=== PATIENT | female | born 1975 | race Caucasian/White ===

== ENCOUNTER → 2024-02-12 16:09 | Outpatient (CLI) | payer OTHER, SELFPAY ==
--- NOTE | 2024-02-12 16:13 | DI.MRI.S_ITS ---
PROCEDURE: MR THORACIC SPINE WO CON INDICATIONS: SPONDYLOISTHESIS LUMB REG/SPONDYLOSIS TSPINE TECHNIQUE: Noncontrast sagittal T1 spine echo and T2 fast spin echo, sagittal STIR, and T2 fast spin echo through the thoracic spine. COMPARISON: [facility], MR, MR LUMBAR SPINE WO CON, 02/12/2024, 16:26. [facility], CR, XR THORACIC SPINE 2 VIEWS, 01/05/2024, 14:51. [facility] Outside [facility], CR, XR LUMBAR SPINE 2 OR 3 VIEWS, 01/05/2024, 14:37. FINDINGS: Image quality: Excellent. Alignment and Curvature: There is normal bony alignment. Bone Marrow: Marrow is of normal overall signal. No acute vertebral body compression fractures. Spinal Cord: Visualized spinal cord is normal in size and signal. Paraspinous Soft Tissues: No paravertebral masses. Miscellaneous: Trace disc bulges present at T3-4, T6-7, T7-T8 small posterior protrusion at T5-6, prominent posterior/left posterior paracentral protrusion at T9-10. There is moderate to severe spinal stenosis secondary to protrusion at T9-10. IMPRESSION: Prominent posterior/left paracentral protrusion at T9-10 causing moderate to severe spinal stenosis. Dictated by: Neva Foley M.D. on 02/16/2024 at 8:46 Approved by: Neva Foley M.D. on 02/16/2024 at 8:51
--- NOTE | 2024-02-12 16:13 | DI.MRI.S_ITS ---
PROCEDURE: MR LUMBAR SPINE WO CON INDICATIONS: SPONDYLOISTHESIS LUMB REG/SPONDYLOSIS TSPINE TECHNIQUE: Noncontrast sagittal T1 spin echo and T2 fast echo, sagittal STIR, and T2 fast spin echo through the lumbar spine. In cases with scoliosis, additional coronal T2 fast spin echo may be performed. COMPARISON: [facility], MR, MR THORACIC SPINE WO CON, 02/12/2024, 16:26. [facility], CR, XR THORACIC SPINE 2 VIEWS, 01/05/2024, 14:51. [facility] Outside [facility], CR, XR LUMBAR SPINE 2 OR 3 VIEWS, 01/05/2024, 14:37. FINDINGS: Image quality: Excellent. Alignment and Curvature: There is grade 2 anterolisthesis of L5 on S1 measuring 1.2 cm compared to 1.2 on x-ray of 01/05/2024. Bilateral L5 pars defect is present. Bone Marrow: Marrow is of normal overall signal. No acute vertebral body compression fractures. Spinal Cord: Conus medullaris terminates at the L1 level. Visualized cord demonstrates normal signal and size. Paraspinous Soft Tissues: No paravertebral masses. Discs: Severe desiccation is present L5-S1. T12-L1: No disc bulge, spinal stenosis or foraminal narrowing. L1-L2: No disc bulge, spinal stenosis or foraminal narrowing. Minimal facet and ligamentum flavum hypertrophy as well as epidural lipomatosis. L2-L3: .No foraminal narrowing. Mild facet and ligamentum flavum hypertrophy as well as epidural lipomatosis. L3-L4: Minimal disc bulge without spinal stenosis. Minimal to mild bilateral foraminal narrowing with facet and ligamentum flavum hypertrophy. L4-L5: No disc bulge or spinal stenosis. No foraminal narrowing. Facet and ligamentum flavum hypertrophy are present. L5-S1: Mild disc bulge without spinal stenosis. There is severe bilateral foraminal narrowing most severe on the right with compression of the exiting right L5 nerve roots. Facet and ligamentum flavum hypertrophy are present. IMPRESSION: Grade 2 anterolisthesis of L5 on S1 with bilateral L5 pars defect. It is causing severe bilateral foraminal narrowing with compression of the right exiting L5 nerve roots. Dictated by: Neva Foley M.D. on 02/16/2024 at 8:40 Approved by: Neva Foley M.D. on 02/16/2024 at 8:45
== END ==
PROVIDERS: PCP Family Medicine; Referring Provider Physical Medicine & Rehabilitation; Visit Provider Physical Medicine & Rehabilitation
DX: M47.814 Spondylosis without myelopathy or radiculopathy, thoracic region (principal); M51.24 Other intervertebral disc displacement, thoracic region; M48.04 Spinal stenosis, thoracic region; M43.16 Spondylolisthesis, lumbar region; M43.17 Spondylolisthesis, lumbosacral region; M48.07 Spinal stenosis, lumbosacral region
CPT/HCPCS: 72146; 72148